=== PATIENT | male | born 1980 | race Caucasian/White ===

== ENCOUNTER → 2019-07-27 | Day surgery (SDC) | payer BC ==
[~2019-07-27] MED LIST: Bacitracin Zinc Ointment 30 gm TUBE ONE; Bupivacaine PF 0.5% 30 ML VIAL ONE; Fentanyl 100 MCG/2 ML VIAL ONE; HYDROcodone/Acetaminophen 5/325 mg Tablet ONE; Ketorolac Tromethamine 30 MG/ML VIAL ONE; Lidocaine 1% PF 5 ML VIAL ONE; PROPOFOL 20 ML ONE; PROPOFOL 200 MG/20 ML VIAL ONE; Sodium Chloride 0.9% 30 ML ONE
--- NOTE | 2019-07-28 09:34 | OP ---
DATE OF PROCEDURE: 07/27/2019 PREOPERATIVE DIAGNOSIS: Left index finger abscess. POSTOPERATIVE DIAGNOSES: Left index finger abscess. PROCEDURE PERFORMED: Incision and drainage of abscess, left index finger. SPECIMENS SENT: Abscess cavity wall, abscess cavity fluid. The patient had a well-formed abscess in left index finger. DESCRIPTION OF PROCEDURE: After successful general endotracheal anesthesia, limb was prepped and draped. The patient had the incision augmented by index finger metacarpophalangeal level block with 10 mL of 0.5% Marcaine prior to surgery and 10 mL of 0.5% Marcaine after surgery. The patient had a clear abscess in clinic that we felt would respond best to incision and drainage because it was purulent, tender, erythema, and fluctuant. After successful general endotracheal anesthesia, patient had a 2 cm incision centered over the obvious abscess cavity. This was carried through skin, subcutaneous tissue protecting neurovascular structures. We found a well-developed abscess cavity with mucopurulent material inside. Specimen was sent to the lab from this incision and drainage. We removed all the soft tissue with a combination of a tenotomy scissor, Adson, and 3 L Pulsavac pressure with antibiotics inside. The wound was dressed open and packed with normal saline soaked 4x4s, underneath dry 4x4s, and a Kerlix and a small Joon. He left the operating room with specimen sent to the lab to rule out infection. Job ID: [id number]
== END ==
LOC: SDC 15:40
PROVIDERS: ATTEND Orthopaedic Surgery Hand Surgery
PROC: 0H9GXZZ Drainage of Left Hand Skin, External Approach (ICD-10-PCS; principal; 2019-07-27)
DX: L02.512 Cutaneous abscess of left hand (principal)
CPT/HCPCS: 87070; 87076; 87077; 87186; 87205; J1885; J2001; J2704; J3010; J3370; J3490; S0020